=== PATIENT | male | born 1965 | race Caucasian/White ===

== ENCOUNTER 2017-02-23 05:51 | Day surgery (SDC) | payer MEDICARE ==
[2017-02-22 12:09] LABS: HEMATOCRIT 47.2 % (42.0-54.0); HEMOGLOBIN 15.9 g/dL (13.5-17.5); MCH 29.3 pg (26.0-34.0); MCHC 33.7 g/dL (31.0-37.0); MCV 87.1 fL (80.0-100.0); MEAN PLATELET VOLUME 9.2 fL (7.4-10.4); RBC 5.42 10x6/uL (4.20-6.10); RDW 13.8 % (11.5-14.5); WBC 7.1 10x3/uL (4.8-10.8)
[~2017-02-23] VITALS: Ht 172.7 cm; Wt 90.7 kg
[~2017-02-23 05:51] MED LIST: HYDROCODONE-APA1 TAB PO; ZESTRIL20 MG PO
[2017-02-23 10:23] VITALS: BP 131/91; Ht 172.7 cm; Wt 90.7 kg
[2017-02-23] MEDS ORDERED: PERCOCET 10/3251 TA1 PO (13:08)
--- NOTE | 2017-03-10 13:39 | OP ---
PATIENT NAME: CHEPE MCKNIGHT MEDICAL RECORD: [id number] LOCATION:[facility] ADMISSION DATE: SURGEON: KAZ FELIZ MD DATE OF OPERATION: 02/23/2017 Orthopedic Surgery Operative Note PREOPERATIVE DIAGNOSIS: Malunion of the right fifth metacarpal. POSTOPERATIVE DIAGNOSIS: Malunion of the right fifth metacarpal. PROCEDURE: Formal osteotomy with correction of malunion of the right MCP joint for a knuckle and palm deformity fixed with a 1.7 plate. OPERATIVE SUMMARY IN DETAIL: After obtaining the appropriate preoperative orthopedic surgery consent as well as anesthetic consultation, evaluation and clearance, the patient was brought to the operating room and placed on the operating table in supine position. After adequate general laryngeal mask airway was administered, tourniquet was placed about the proximal aspect of the right upper extremity. Right upper extremity was then prepped and draped in routine sterile fashion. The arm was elevated and exsanguinated, tourniquet inflated to 350 mmHg. Routine incision was made directly over the MCP joint, taken down to the level of the dorsal romeo, which was split in line with fibers of the dorsal romeo to reveal the jagged bone end, which had partially healed. A small osteotome was then utilized to take down the malunion. The condyles were then rotated to a more anatomic position with only minimal loss of length. The condyles were then fixed provisionally with K wires and then a small Y plate from the [employer] system 1.7, was utilized for fixation. Excellent fixation was achieved as seen on AP and lateral planes. Having completed this, the wound was copiously irrigated, dorsal romeo was closed with 3-0 Vicryl followed by 4-0 Prolene. Sterile dressings were applied. Tourniquet was deflated. The patient was awakened, taken to recovery room in stable condition. All final needle and sponge counts were correct. TRANSINT:[id number] Voice Confirmation ID: [id number] DOCUMENT ID: [id number] KAZ FELIZ MD at 1339 CC: [id number] DICTATION DATE: 03/09/17 0520 PHYSICAL DESIGN ENGINEER: 03/09/17 1450 [facility] 02/23/17 [place] [address]
== END 2017-02-23 14:25 | disposition home or self-care (01) ==
LOC: D.OPS 05:51 → D.PAN 10:45 → D.OPS 14:25 → D.PAN 15:15 → D.OPS 16:00 → D.PAN 16:00
PROVIDERS: Anesthesiology
DX: S62.306A Unspecified fracture of fifth metacarpal bone, right hand, initial encounter for closed fracture (principal); X58.XXXA Exposure to other specified factors, initial encounter

== ENCOUNTER 2017-03-10 12:49 | Emergency (ER) | payer MEDICARE ==
[2017-02-23 10:23] VITALS: BMI 30.4
[~2017-03-10 12:49] MED LIST changes: +PERCOCET 10/3251 TA1 PO
== END 2017-03-10 13:35 | disposition home or self-care (01) ==
LOC: D.ER 12:49
DX: M79.641 Pain in right hand (principal); Z76.0 Encounter for issue of repeat prescription